=== PATIENT | female | born 1955 | race Caucasian/White ===

== ENCOUNTER → 2020-03-02 15:14 | Outpatient (CLI) | payer OTHER, SELFPAY ==
--- NOTE | 2020-03-02 15:17 | BI_ITS ---
MAMMOGRAPHY - BILATERAL SCREENING REASON FOR EXAM: Female, 64 years old. Routine annual screening examination. PERTINENT HISTORY: Non-contributory. Remote right excisional breast biopsy. TECHNIQUE: Digital bilateral breast [place] (3D mammographic acquisition) in the CC and MLO projections. 2-D mediolateral oblique (MLO) and craniocaudad (CC) views of both breasts were obtained. CAD: Full Field Digital Mammography with Computer Added Detection was performed. COMPARISON: Comparison is made with prior study dated December 03, 2015 and December 01, 2014. FINDINGS: Breast Composition: There are scattered areas of fibroglandular density. There are no dominant masses or suspicious calcifications. The previously seen nodular density in the upper outer aspect of the left breast is not seen at this time. There is a 5.8 mm x 6.7 mm nodule in the inferior anterior central portion of the right breast. There is also evidence of a 8.6 mm x 1 cm nodule in the deep slightly upper lateral portion of the right breast. Correlation with ultrasound of both nodules is suggested. Stable benign-appearing bilateral axillary lymph nodes. No other significant abnormalities are identified. BI/SCREEN MAMM (CAD) W/[place] BILAT IMPRESSION: 2 nodular densities in the right breast as described. Correlation with ultrasound is recommended. ASSESSMENT CATEGORY: BIRADS Category 0: Incomplete. Need additional imaging evaluation. A letter regarding these results will be sent to the patient by the facility within 30 days. Approximately 10% of breast cancers are not detected by mammography. A normal mammogram should not delay biopsy of a clinically suspicious abnormality. [id number] Electronically Signed: Dillon Escamilla, at 8:47 EDT , Service support ,
--- NOTE | 2020-03-02 15:20 | BD_ITS ---
STUDY: DUAL ENERGY X-RAY ABSORPTIOMETRY / DXA REASON FOR EXAM: Female, 64 years old. [employer]- SURGICAL AT 49 -- HX OF HRT -- TAKES DIURETIC -- DOES LITTLE EXERCISE -- FAMILY HX OF OSTEO- MOTHER -- CANDE OF 1.75 INCHES TECHNIQUE: Bone Mineral Density (BMD) measurements of lumbar spine and bilateral hips were obtained. COMPARISON: Comparison is made with prior examination dated December 01, 2014. FINDINGS: Lumbar Spine (L1-L4): g/cm2 (1.212) / T-score (0.1) / Z-score (1.6) Findings are suggestive of normal bone density with a low fracture risk. Left Femur Total: g/cm2 (0.992) / T-score (-0.1) / Z-score (1.0) Left Femoral Neck: g/cm2 (0.977) / T-score (-0.4) / Z-score (1.0) Right Femur Total: g/cm2 (0.969) / T-score (-0.3) / Z-score (0.8) Right Femoral Neck: g/cm2 (0.917) / T-score (-0.9) / Z-score (0.5) The T-Scores on the most recent prior examination were: Lumbar Spine (L1-L4): There has been worsening of bone density since the previous examination. Left Femur Total: which represents a worsening of 2%. Right Femur Total: which represents a worsening of 3.3%. BD/Dexa Bone Density Study IMPRESSION: The patient is considered normal as outlined below according to World Evens Organization (WHO) criteria with a low fracture risk. There has been worsening of bone density since the previous examination. Reference Information: The T-score is the number of standard deviations above or below the standard which is normal for young adults at their peak bone mineral density. The World Health Organization (WHO) interprets the T-scores as follows: Above -1 Normal bone density Between -1 and -2.5 Osteopenia Equal to / or below -2.5 Osteoporosis As a practical clinical guideline, osteopenia may be graded as follows: Mild -1 through -1.5 Moderate -1.6 through -2.0 Severe -2.1 through -2.4 The Z-score is the number of standard deviations above or below age-matched controls. A Z-score of less than -1.5 would be considered abnormal. References: 1. NIH Osteoporosis and Related Bone Diseases http://www.osteo.org 2. International Society for Clinical Densitometry http://www.iscd.org 3. National Osteoporosis Foundation http://www.nof.org Electronically Signed: Dillon Escamilla, at 15:48 EDT , Service support ,
== END ==
PROVIDERS: PCP Internal Medicine; Referring Provider Internal Medicine; Visit Provider Internal Medicine
DX: Z12.31 Encounter for screening mammogram for malignant neoplasm of breast (principal); Z78.0 Asymptomatic menopausal state
CPT/HCPCS: 77063; 77067; 77080

== ENCOUNTER → 2020-03-08 10:34 | Outpatient (CLI) | payer OTHER, SELFPAY ==
--- NOTE | 2020-03-08 10:40 | US_ITS ---
STUDY: ULTRASOUND BREAST - RIGHT REASON FOR EXAM: Female, 64 years old. Abnormal screening mammogram. TECHNIQUE: Axial and longitudinal images of the RIGHT breast were performed with a high resolution ultrasound transducer. # OF IMAGES: 58 COMPARISON: Comparison is made with prior mammogram dated March 02, 2020 and prior ultrasound of the right breast dated September 04, 2012. FINDINGS: RIGHT Breast: There is a 7 mm x 9 mm x 6 mm cyst at the 6:00 position of the breast at 2 cm from nipple. There is also evidence of a 9 mm x 8 mm x 5 mm cyst at the 9:00 position of the breast at 4 cm from nipple. US/Breast Limited Unilateral IMPRESSION: The mammographic abnormality corresponds to 2 small cysts. ASSESSMENT CATEGORY: BIRADS Category 2: Benign. A letter regarding these results will be sent to the patient by the facility within 30 days. Electronically Signed: Dillon Escamilla, at 12:51 EDT , Service support ,
== END ==
PROVIDERS: PCP Internal Medicine; Referring Provider Internal Medicine; Visit Provider Internal Medicine
DX: R92.8 Other abnormal and inconclusive findings on diagnostic imaging of breast (principal); N60.01 Solitary cyst of right breast
CPT/HCPCS: 76642

== ENCOUNTER → 2021-03-07 10:49 | Outpatient (CLI) | payer OTHER, SELFPAY ==
--- NOTE | 2021-03-07 10:52 | BI_ITS ---
MAMMOGRAPHY - BILATERAL SCREENING REASON FOR EXAM: Female, 65 years old. Routine annual screening examination. PERTINENT HISTORY: Non-contributory. Remote right excisional breast biopsy and left needle biopsy. TECHNIQUE: Digital bilateral breast [place] (3D mammographic acquisition) in the CC and MLO projections. 2-D mediolateral oblique (MLO) and craniocaudad (CC) views of both breasts were obtained. CAD: Full Field Digital Mammography with Computer Added Detection was performed. COMPARISON: Comparison is made with prior study dated 03/02/2020 and 12/03/2015. FINDINGS: Breast Composition: There are scattered areas of fibroglandular density. There are no dominant masses or suspicious calcifications. There is a 6 mm x 6 mm well-defined nodule in the slightly inferior medial anterior aspect of the right breast. This is unchanged. The previously seen nodular density in the deep slightly upper lateral aspect of the right breast is not seen at this time. No other significant abnormalities are identified. BI/SCRN MAMM (CAD)W/[place] BILAT IMPRESSION: Stable bilateral screening mammogram. Yearly follow-up mammogram recommended. (A) ASSESSMENT CATEGORY: BIRADS Category 2: Benign. A letter regarding these results will be sent to the patient by the facility within 30 days. Approximately 10% of breast cancers are not detected by mammography. A normal mammogram should not delay biopsy of a clinically suspicious abnormality. [id number] Electronically Signed: Dillon Escamilla MD at 14:02 EDT , Service support ,
== END ==
PROVIDERS: PCP Internal Medicine; Referring Provider Internal Medicine; Visit Provider Internal Medicine
DX: Z12.31 Encounter for screening mammogram for malignant neoplasm of breast (principal)
CPT/HCPCS: 77063; 77067

== ENCOUNTER 2021-11-09 05:10 | Emergency (ER) | payer MEDICARE, SELFPAY ==
[2021-11-09 05:10] VITALS: BP 153/88; PULSE 67; RESP 18; TEMP 37; O2SAT 100; BMI 35.7
[2021-11-09 05:14] VITALS: BP 146/88; PULSE 68; RESP 18; TEMP 37; O2SAT 100
--- NOTE | 2021-11-09 05:25 | CT_ITS ---
STUDY: CT ABDOMEN AND PELVIS WITH CONTRAST REASON FOR EXAM: Female, 66 years old. ? SBO RADIATION DOSAGE (If Supplied By Facility): CTDIvol = ( 17.00 ) mGy, DLP = ( 1059.69 ) mGycm TECHNIQUE: Transaxial images were obtained from the dome of the diaphragm to the symphysis pubis without oral contrast. IV 100mL Isovue-370 was administered. Sagittal and coronal images were reconstructed. Individualized dose optimization techniques were used for this CT. COMPARISON: None. FINDINGS: The visualized lung bases are unremarkable. The visualized portions of the heart are within normal limits. Normal liver. There is a solitary gallstone. Normal spleen. Normal pancreas. Normal bilateral adrenal glands. Normal right kidney. There is several tiny nonobstructive left renal calculi largest measuring 5 mm in size. There is minimal left hydroureter. Probable tiny 2 mm calculus layering within the posterior urinary bladder. There is a small hiatal hernia. Normal small intestine. Normal colon. There is non-visualization of the appendix. No bowel obstruction. Moderate retained stool in the proximal colon. Correlate for constipation. Normal abdominal aorta. Normal inferior vena cava. Normal retroperitoneum. Normal urinary bladder. Normal abdominal wall. There are diffuse degenerative changes of the visualized lumbar spine. CT/Abdomen/Pelvis W IV Cont ONLY IMPRESSION: Minimal left hydroureter without ureteral calculus. Probable tiny 2 mm calculus layering in the posterior urinary bladder likely due to recently passed calculus. No bowel obstruction. Cholelithiasis without evidence for cholecystitis. Electronically Signed: Xander Clifford MD at 7:12 EST Tel , Service support ,
--- NOTE | 2021-11-09 05:27 | EX.ED.DYSGE1 ---
HPI History of Present Illness Chief Complaint: Nausea/Vomiting Narrative Narrative: Patient is a 66-year-old female who states that she went to bed normally. She reports she awoke around 3 in the morning with left-sided abdominal pain. She states she was able to get back to bed for approximately an hour but then awoke with the left-sided pain once again. She states this time it led to bouts of nausea and vomiting. She denies any fevers or chills or known sick contact. She denies any dysuria or hematuria. She reports that she could not get comfortable because of the pain and secondary to this had concerned about an abdominal process and therefore presents for evaluation. PFSH PFS Home Medications amlodipine 5 mg PO DAILY 05/29/14 [History Last Taken 05/28/14 08:00] diphenoxylate-atropine [Lomotil] 1 tab PO TID PRN PRN 11/09/21 [History Last Taken Unknown] hydrochlorothiazide 25 mg DAILY 11/09/21 [History Last Taken Unknown] omeprazole 20 mg PO BID 11/09/21 [History Last Taken Unknown] ondansetron 4 mg PO Q8H PRN #21 tab 11/09/21 [Rx Last Taken Unknown] oxycodone-acetaminophen [Percocet] 1 tab PO Q6H PRN 3 Days #12 tab 11/09/21 [Rx Last Taken Unknown] rosuvastatin [Crestor] 10 mg PO DAILY 11/09/21 [History Last Taken Unknown] Allergy/AdvReac Type Severity Reaction Status Date / Time Sulfa (Sulfonamide Allergy Intermediate Unknown Verified 11/09/21 05:15 Antibiotics) Social History Smoking Status: Never smoker ROS [facility] ED Constitutional Constitutional ED: Denies chills or fever(s) ENT ENT ED: Denies rhinorrhea or sore throat Cardiovascular Cardiovascular: Denies chest pain Respiratory/Chest Respiratory/Chest: Denies cough or dyspnea Gastrointestinal Gastrointestinal: Reports abdominal pain, constipation, nausea and vomiting; Denies diarrhea Genitourinary Genitourinary ED: Denies dysuria Musculoskeletal Musculoskeletal: Denies back pain or myalgias Integumentary Denies rash Neurologic Neurologic: Denies headache(s) Hematologic/Lymphatic Hematologic/Lymphatic: Denies easy bleeding or easy bruising EXAM Physical Exam Const Vital Signs: 11/09/21 05:10 11/09/21 05:14 11/09/21 06:29 Temperature 98.6 F 98.6 F 98.0 F Temperature Source Temporal Temporal Temporal Pulse Rate 67 68 Respiratory Rate 18 18 Blood Pressure 153/88 H 146/88 H Blood Pressure Mean 109 107 Pulse Ox 100 100 Oxygen Delivery Method Room Air Room Air Positive well nourished and well developed General Appearance ED: well developed HEENT Reports moist mucous membranes Eyes PERRL and EOMs intact bilaterally Neck supple Resp normal respiratory effort and clear to auscultation bilaterally Cardio regular rate and regular rhythm Rate: other Other Details: Radial pulses are plus 2 out of 4 bilaterally are equal and symmetric GI GI Narrative: Abdomen is mildly distended with hypoactive bowel sounds and pain with palpation along the left-side. There is increased tympany at the site. No voluntary guarding or rigidity no pulsatile mass. Back/Spine no CVA tenderness Extremity normal to inspection Neuro oriented x3 and CN's II-XII intact bilaterally Sensorium / Orientation: alert Motor Exam: strength 5/5 throughout Psych mental status grossly normal Skin no rashes or lesions noted MDM MDM MDM Narrative Medical decision making narrative: Patient presented to the ER with history concerning for kidney stone versus diverticulitis or bowel obstruction as she did appear distended on exam. Secondary to this I elected perform basic laboratory studies and a CT scan. Labs showed no leukocytosis left shift or acute kidney injury. CT scan showed a stone in the urinary bladder consistent with a recently passed nephrolithiasis. On reevaluation the patient is resting comfortably and reports resolution of her pain. Therefore at this time as she does not have obvious obstruction or infectious process or changes to suggest acute kidney injury she can be placed on symptomatic medications and discharged. Lab Data Attestation: I reviewed the patient's lab results. Labs: Laboratory Results - last 24 hr 11/09/21 11/09/21 05:17 05:17 WBC 9.4 RBC 4.57 Hgb 12.9 Hct 40.1 MCV 87.7 MCH 28.2 MCHC 32.2 RDW Std Deviation 39.8 RDW Coeff of Ly 12.4 Plt Count 288 MPV 11.5 Immature Gran % (Auto) 0.500 Neut % (Auto) 60.5 Lymph % (Auto) 30.1 Baker % (Auto) 6.4 Eos % (Auto) 2.0 Baso % (Auto) 0.5 Absolute Neuts (auto) 5.7 Absolute Lymphs (auto) 2.83 Nucleated RBC % 0 Sodium 139 Potassium 3.0 L Chloride 97 L Carbon Dioxide 29.0 Anion Gap 13 BUN 16 Creatinine 1.01 Estim Creat Clear Calc 41.90 Est GFR (MDRD) Af Amer 71 Est GFR (MDRD) Non-Af 58 L BUN/Creatinine Ratio 15.8 Glucose 188 H Calcium 9.4 Total Bilirubin 0.50 Direct Bilirubin 0.09 AST 29 ALT 37 Alkaline Phosphatase 96 Total Protein 7.6 Albumin 3.8 Globulin 3.8 Lipase 102 Radiography Diagnostic Testing: Clinical Impression(s) from Imaging Studies Abdomen/Pelvis CT 11/09/21 05:25 IMPRESSION: Minimal left hydroureter without ureteral calculus. Probable tiny 2 mm calculus layering in the posterior urinary bladder likely due to recently passed calculus. No bowel obstruction. Cholelithiasis without evidence for cholecystitis. Electronically Signed: Xander Clifford MD at 7:12 EST Tel , Service support , Discharge Plan Triage Chief Complaint: Nausea/Vomiting ED Provider: Sebas Riggins Dx/Rx/DC Orders Clinical Impression: Kidney stone on left side, Renal colic Instructions: ED Kidney Stone w/ Colic Prescriptions: New oxycodone-acetaminophen [Percocet] 5-325 mg tablet 1 tab PO Q6H PRN (Reason: pain) 3 Days Qty: 12 RF: 0 ondansetron 4 mg tablet,disintegrating 4 mg PO Q8H PRN (Reason: nausea and vomiting) Qty: 21 RF: 0 No Action amlodipine 5 MG tablet 5 mg PO DAILY RF: 0 diphenoxylate-atropine [Lomotil] 1 TABLET tablet 1 tab PO TID PRN PRN (Reason: Diarrhea) RF: 0 hydrochlorothiazide 25 mg tablet 25 mg DAILY RF: 0 rosuvastatin [Crestor] 10 mg Tablet 10 mg PO DAILY RF: 0 omeprazole 20 mg Tablet,Delayed Release (Dr/Ec) 20 mg PO BID RF: 0 Primary Care Provider: Leatha Almanza Referrals: Taz Christian MD [STAFF PHYSICIAN] - 3-5 Days if not improving Leatha Almanza DO [Primary Care Provider] - Disposition Disposition: Home, Self Care
[2021-11-09] MEDS: 0.9% Normal Saline 1,000 ML 999 ML IV (05:40)
[2021-11-09] MEDS: Morphine 4 MG/ML Syringe IV (05:41)
[2021-11-09] MEDS: Ondansetron 4 MG/2 ML Vial IV (05:41)
[2021-11-09 05:48] LABS: Absolute Lymphocyte Count 2.83 X10^3/uL (0.83-4.51); Absolute Neutrophil Count 5.7 X10^3/uL (2.0-7.7); Basophil# 0.05 X10^3/uL; Basophil% 0.5 % (0-1); Eosinophil# 0.19 X10^3/uL; Hematocrit 40.1 % (37-47); Hemoglobin 12.9 g/dL (12.0-15.0); Lymphocyte # 2.83 X10^3/ul (0.83-4.51); Lymphocyte % 30.1 % (19-41); Mean Corp Hgb Conc 32.2 g/dL (32-36); Mean Corpuscular Hgb 28.2 pg (27.0-32.0); Mean Corpuscular Volume 87.7 fL (81-99); Mean Platelet Vol. 11.5 fl (6.2-12.0); Monocyte% 6.4 % (0-10); NRBC Flagged by Analyzer 0 % (0-5); Neutrophil # 5.69 X10^3/uL (2.7-7.7); Neutrophil % 60.5 % (47-70); Platelet Count 288 K/mm3 (150-450); RBC Distribution Width CV 12.4 % (11.6-14.6); RBC Distribution Width SD 39.8 fl (35.1-43.9); Red Blood Count 4.57 M/mm3 (4.2-5.4); White Blood Count 9.4 K/mm3 (4.4-11.0)
[2021-11-09] MEDS: fentaNYL 100 MCG/2 ML Ampul 50 MCG IV (06:16)
[2021-11-09 06:29] VITALS: TEMP 36.7
[2021-11-09 06:32] LABS: AST(SGOT) 29 U/L (15-37); Alanine Aminotransfer ALT/SGPT 37 U/L (13-56); Albumin, Serum 3.8 g/dL (3.2-5.0); Alkaline Phosphatase 96 U/L (45-117); Anion Gap 13 (5-15); BUN 16 mg/dL (7-18); BUN/Creat Ratio 15.8 RATIO (10-20); Bilirubin, Direct 0.09 mg/dL (0.00-0.30); Calcium,Total 9.4 mg/dL (8.5-10.1); Chloride 97 mmol/L (98-107); Creatinine, Serum 1.01 mg/dL (0.55-1.02); EST Glomerular Filtration Rate 58 mL/min (>60); Est Glom Filt Rate - Afr Amer 71 mL/min (>60); Globulin 3.8 g/dL (2.2-4.2); Glucose 188 mg/dL (74-106); Lipase 102 U/L (73-393); Protein, Total 7.6 g/dL (6.4-8.2); Sodium Level 139 mmol/L (136-145)
[2021-11-09 07:11] LABS: Bacteria 0 SEEN /hpf (None Seen); Mucous, Urine 0 SEEN /hpf (<or=2+); Squamous Epithelial Cells - UA 0 SEEN /hpf (5-10); White Blood Cells 0 SEEN /hpf (0-5)
[2021-11-09 07:38] LABS: Color, Urine Straw (Yellow); Glucose, Dipstick Normal (Normal); Ketone-Dipstick Negative (Negative); Leukocyte Esterase-Dipstick Negative /ul (Negative); Nitrite-Dipstick Negative (Negative); Occult Blood-Urine 150 /ul (Negative); Protein-Dipstick Negative (Negative); Urine Bilirubin Dipstick Negative (Negative); Urine Clarity Clear (Clear); Urine Urobilinogen Normal (Normal)
[2021-11-09 07:50] LABS: Red Blood Cells-Urine 0-5 SEEN /hpf (0-5)
== END 2021-11-09 07:59 | disposition home or self-care (01) ==
PROVIDERS: Emergency Provider Emergency Medicine; PCP Internal Medicine; Visit Provider Emergency Medicine
DX: N20.0 Calculus of kidney (principal)
CPT/HCPCS: 74177; 80048; 80076; 81001; 83690; 85025; 96361; 96374; 96375; 99281; 99282; J7030; Q9967; A4216; J2405

== ENCOUNTER 2021-11-25 11:52 | Outpatient (CLI) | payer MEDICARE, SELFPAY ==
--- NOTE | 2021-11-25 11:56 | RAD_ITS ---
EXAM: XR ABDOMEN, 1 VIEW CLINICAL INDICATION: KIDNEY STONES TECHNIQUE: Frontal supine view of the abdomen/pelvis. This report was created using [employer] report generation technology. COMPARISON: None. FINDINGS: LOWER THORAX: No acute pathology. GASTROINTESTINAL TRACT: Unremarkable. Non-obstructive. No bowel or stomach distention. ORGANS: Faceted gallstone in the gallbladder. Degenerative findings in the lumbar spine. There are calcified phleboliths in the pelvis. This makes differentiation with distal ureteral stones difficult. No organomegaly. BONES/JOINTS: No acute pathology. SOFT TISSUES: No acute pathology. RAD/Abdomen Single View IMPRESSION: Faceted gallstone in the gallbladder. Electronically Signed: Tarik Ashton MD at 18:33 EST ,
== END 2021-11-25 23:59 | disposition short-term general hospital (02) ==
LOC: MTRAD 11:54
PROVIDERS: PCP Internal Medicine; Referring Provider Urology; Visit Provider Urology
DX: N20.0 Calculus of kidney (principal)
CPT/HCPCS: 74018

== ENCOUNTER 2022-01-10 07:54 | Day surgery (SDC) | payer MEDICARE, SELFPAY ==
[2022-01-10] VITALS (8 sets, daily range): BP systolic 116–146; BP diastolic 81–92; PULSE 74–88; RESP 14–16; TEMP 36.3–37.2; O2SAT 97–100; BMI 32.9
--- NOTE | 2022-01-10 08:03 | EKG12_ITS ---
Test Reason : PREOP Blood Pressure : / mmHG Vent. Rate : 071 BPM Atrial Rate : 071 BPM P-R Int : 148 ms QRS Dur : 074 ms QT Int : 416 ms P-R-T Axes : -03 018 031 degrees QTc Int : 452 ms Normal sinus rhythm Normal ECG No previous ECGs available Confirmed by ARLIN CORDERO, SUSI ([id number]), commissioning editor MONICA KENDALL ([id number]) on 01/12/2022 1:37:08 PM Referred By: Denisse Restrepo Confirmed By:MARIEL OLIVEROS MD
--- NOTE | 2022-01-10 08:19 | PCM.OPRPT ---
Problems Associated Problem List Diagnoses (1) Left renal stone: (2) Incomplete uterovaginal prolapse: Report of Operation Date of Procedure: 01/10/22 Pre-Operative Diagnosis: Left renal calculi , incomplete uterovaginal prolapse Post-Operative Diagnosis: Same Surgery/Procedure Performed:: Cystoscopy with left retrograde pyelogram, left extracorporal shockwave lithotripsy Surgeon: Denisse Restrepo Type of Anesthesia: General Description of Procedure: The patient is a 66-year-old female with a left renal calculus and significant pelvic organ prolapse. She presents for definitive management of her renal stones with extracorporal shockwave lithotripsy, and cystoscopy in preparation for surgical intervention for her prolapse. Informed consent was obtained. Patient was taken to the operating room and placed on the operating room table. Anesthesia monitored the head, neck, IV and vital signs throughout the case. Once anesthesia was appropriately administered the patient was positioned into dorsal lithotomy and was prepped and draped in usual sterile fashion. A cystourethroscopy was performed through the urethra under direct visualization. Once in the urinary bladder, the mucosa was visualized in its entirety and found to be without evidence of mass, ulceration or foreign body. The ureteral orifices were located in the correct anatomic position in the area of the trigone. An 8 [place] cone-tip catheter was then used to gently cannulate the left ureteral orifice and contrast was injected in retrograde fashion under fluoroscopic visualization. 2 stones were identified, 1 in the midpole and one in the lower pole. There is no hydronephrosis or evidence of other filling defect or abnormality. At this time the cystoscope was removed. 3000 shocks were applied to the stones which appeared to be well fragmented at the conclusion of the case. The patient was then awakened and taken to the recovery room in good condition. There were no complications during this procedure Grafts/Implants Used: None Complications None Admit VTE Documentation VTE Present on Admission: Yes VTE Mechan Device Prophylaxis: SCD's VTE Pharm Prophylaxis ordered?: No Reason prophylaxis not ordered:: Treatment Not Indicated
--- NOTE | 2022-01-10 08:22 | PCM.DC ---
Discharge Instructions Diet Discharge Diet: No restrictions Activity Discharge Activity: Return to Normal Activity Dressing / Incision Call your doctor if you observe: Fever of 101 or Higher, Inability to urinate and Inability to have a bowel movement Follow Up Care Please Follow Up With: Denisse Restrepo MD When: in 2-3 weeks with KUB, call office for appt Test Results: Test results from this visit will be discussed in further detail at your follow-up appointment, if applicable. Discharge Plan Admission Attending Provider: Denisse Restrepo Primary Care Provider: Leatha Almanza Discharge Orders/Prescriptions Prescriptions: New cephalexin [cephalexin] 500 MG capsule 500 mg PO Q12 3 Days Qty: 6 RF: 0 Continued amlodipine 5 MG tablet 5 mg PO DAILY RF: 0 hydrochlorothiazide 25 mg tablet 25 mg DAILY RF: 0 rosuvastatin [Crestor] 10 mg Tablet 10 mg PO DAILY RF: 0 omeprazole 20 mg Tablet,Delayed Release (Dr/Ec) 20 mg PO DAILY RF: 0 Referrals / Follow Up: Leatha Almanza DO [Primary Care Provider] - Disposition Disposition (needs filled in before D/C Order can be placed): Home, Self Care
[2022-01-10] MEDS: Lactated Ringers 1,000 ML 15 ML IV (08:37)
[2022-01-10 08:40] LABS: Hematocrit 37.8 % (37-47); Hemoglobin 12.4 g/dL (12.0-15.0); Mean Corp Hgb Conc 32.8 g/dL (32-36); Mean Corpuscular Hgb 28.5 pg (27.0-32.0); Mean Corpuscular Volume 86.9 fL (81-99); Mean Platelet Vol. 10.7 fl (6.2-12.0); Platelet Count 218 K/mm3 (150-450); RBC Distribution Width CV 12.8 % (11.6-14.6); RBC Distribution Width SD 40.7 fl (35.1-43.9); Red Blood Count 4.35 M/mm3 (4.2-5.4); White Blood Count 4.3 K/mm3 (4.4-11.0)
[2022-01-10 09:02] LABS: Anion Gap 6 (5-15); BUN 13 mg/dL (7-18); Calcium,Total 9.5 mg/dL (8.5-10.1); Chloride 102 mmol/L (98-107); EST Glomerular Filtration Rate 59 mL/min (>60); Est Glom Filt Rate - Afr Amer 72 mL/min (>60); Estimated Creatinine Clearance 42.32 ml/min; Glucose 117 mg/dL (74-106); Potassium 3.2 mmol/L (3.5-5.1); Sodium Level 140 mmol/L (136-145)
[2022-01-10] MEDS: Cefazolin 2 GM in 0.9% Normal Saline 100 ML IV (09:11)
== END 2022-01-10 23:59 | disposition home or self-care (01) ==
LOC: SDC 08:00 → AC 08:01
PROVIDERS: PCP Internal Medicine; Referring Provider Urology; Visit Provider Urology
PROC: (CPT 50590; principal; 2022-01-10 09:15)
DX: N20.0 Calculus of kidney (principal); N99.3 Prolapse of vaginal vault after hysterectomy; N95.2 Postmenopausal atrophic vaginitis; I10 Essential (primary) hypertension; M19.90 Unspecified osteoarthritis, unspecified site; K21.9 Gastro-esophageal reflux disease without esophagitis
CPT/HCPCS: 50590; 00873; 80048; 85027; 93005; J7120; J2405

== ENCOUNTER 2022-01-25 13:08 | Outpatient (CLI) | payer MEDICARE, SELFPAY ==
--- NOTE | 2022-01-25 13:12 | RAD_ITS ---
EXAM: XR ABDOMEN, 1 VIEW CLINICAL INDICATION: KUB- KIDNEY CALC. TECHNIQUE: Frontal supine view of the abdomen/pelvis. This report was created using [employer] report generation technology. COMPARISON: None. FINDINGS: LOWER THORAX: No acute pathology. GASTROINTESTINAL TRACT: Stool in the colon may suggest constipation. Non-obstructive. No bowel or stomach distention. ORGANS: Gallstone. No organomegaly. BONES/JOINTS: Degenerative findings in the lumbar spine. SOFT TISSUES: No acute pathology. RAD/Abdomen Single View IMPRESSION: 1. Stool in the colon may suggest constipation. 2. Gallstone. Electronically Signed: Tarik Ashton MD at 18:34 EDT ,
== END 2022-01-25 23:59 | disposition home or self-care (01) ==
LOC: MTRAD 13:10
PROVIDERS: PCP Internal Medicine; Referring Provider Urology; Visit Provider Urology
DX: N20.0 Calculus of kidney (principal)
CPT/HCPCS: 74018

== ENCOUNTER → 2022-03-08 | Outpatient (CLI) | payer MEDICARE, SELFPAY ==
--- NOTE | 2022-03-08 10:24 | BI_ITS ---
MAMMOGRAPHY - BILATERAL SCREENING REASON FOR EXAM: Female, 66 years old. Routine annual screening examination. PERTINENT HISTORY: Non-contributory. Remote right excisional breast biopsy. TECHNIQUE: Digital bilateral breast [place] (3D mammographic acquisition) in the CC and MLO projections. 2-D mediolateral oblique (MLO) and craniocaudad (CC) views of both breasts were obtained. CAD: Full Field Digital Mammography with Computer Added Detection was performed. COMPARISON: Comparison is made with prior study of 03/07/2021 and 03/02/2020. FINDINGS: Breast Composition: There are scattered areas of fibroglandular density. There are no dominant masses or suspicious calcifications. Stable 6 mm x 6 mm well-defined nodule in the slightly inferior medial anterior aspect of the right breast. This was demonstrated to be a small cyst on prior sonogram. Stable small benign-appearing bilateral axillary lymph nodes. No other significant abnormalities are identified. There has been no significant change since the prior study. BI/SCRN MAMM (CAD)W/[place] BILAT IMPRESSION: Stable bilateral screening mammogram. Yearly follow-up mammogram recommended. (A) ASSESSMENT CATEGORY: BIRADS Category 2: Benign. A letter regarding these results will be sent to the patient by the facility within 30 days. Approximately 10% of breast cancers are not detected by mammography. A normal mammogram should not delay biopsy of a clinically suspicious abnormality. [id number] Electronically Signed: Dillon Escamilla MD at 12:39 EDT ,
--- NOTE | 2022-03-08 10:29 | BD_ITS ---
STUDY: DUAL ENERGY X-RAY ABSORPTIOMETRY / DXA REASON FOR EXAM: Female, 66 years old. [id number]. Patient is postmenopausal. TECHNIQUE: Bone Mineral Density (BMD) measurements of lumbar spine and bilateral hips were obtained. COMPARISON: Comparison is made with prior study dated 03/02/2020 . FINDINGS: Lumbar Spine (L1-L4): g/cm2 (1.015) / T-score (-0.2) / Z-score (1.6) Findings are suggestive of normal bone density with a low fracture risk. Left Femur Total: g/cm2 (0.939) / T-score (0.0) / Z-score (1.2) Left Femoral Neck: g/cm2 (0.806) / T-score (0.4) / Z-score (1.2) Right Femur Total: g/cm2 (0.921) / T-score (-0.2) / Z-score (1.1) Right Femoral Neck: g/cm2 (0.73) / T-score (-0.6) / Z-score (1.0) The T-Scores on the most recent prior examination were: Lumbar Spine (L1-L4): There has been worsening of bone density since the previous examination. Left Femur Total: which represents an improvement of 1.4%. Right Femur Total: which represents an improvement of 1.8%. BD/Dexa Bone Density Study IMPRESSION: The patient is considered normal as outlined below according to World Evens Organization (WHO) criteria with a low fracture risk. There has been improvement of bone density since the previous examination. Reference Information: The T-score is the number of standard deviations above or below the standard which is normal for young adults at their peak bone mineral density. The World Health Organization (WHO) interprets the T-scores as follows: Above -1 Normal bone density Between -1 and -2.5 Osteopenia Equal to / or below -2.5 Osteoporosis As a practical clinical guideline, osteopenia may be graded as follows: Mild -1 through -1.5 Moderate -1.6 through -2.0 Severe -2.1 through -2.4 The Z-score is the number of standard deviations above or below age-matched controls. A Z-score of less than -1.5 would be considered abnormal. References: 1. NIH Osteoporosis and Related Bone Diseases www osteo.org 2. International Society for Clinical Densitometry www iscd.org 3. National Osteoporosis Foundation www nof.org Electronically Signed: Dillon Escamilla MD at 12:09 EDT ,
== END | disposition home or self-care (01) ==
LOC: OPBD 10:22
PROVIDERS: PCP Internal Medicine; Referring Provider Internal Medicine; Visit Provider Internal Medicine
DX: Z12.31 Encounter for screening mammogram for malignant neoplasm of breast (principal); Z78.0 Asymptomatic menopausal state
CPT/HCPCS: 77063; 77067; 77080

== ENCOUNTER 2022-06-12 13:00 | Outpatient (RCR) | payer MEDICARE, SELFPAY | END 2022-06-28 23:59 | LOC: DC 13:00 | PROVIDERS: PCP Internal Medicine; Referring Provider Internal Medicine; Visit Provider Internal Medicine | DX: E11.9 Type 2 diabetes mellitus without complications (principal); I10 Essential (primary) hypertension; E78.5 Hyperlipidemia, unspecified | CPT/HCPCS: 97802; G0108 ==

== ENCOUNTER → 2022-07-12 | Outpatient (CLI) | payer MEDICARE, SELFPAY ==
[2022-07-12 15:07] LABS: Hematocrit 41.2 % (37-47); Hemoglobin 13.5 g/dL (12.0-15.0); Mean Corp Hgb Conc 32.8 g/dL (32-36); Mean Corpuscular Hgb 28.9 pg (27.0-32.0); Mean Corpuscular Volume 88.2 fL (81-99); Mean Platelet Vol. 12.1 fl (6.2-12.0); Platelet Count 244 K/mm3 (150-450); RBC Distribution Width CV 14.2 % (11.6-14.6); RBC Distribution Width SD 45.7 fl (35.1-43.9); Red Blood Count 4.67 M/mm3 (4.2-5.4); White Blood Count 5.9 K/mm3 (4.4-11.0)
[2022-07-12 15:19] LABS: Anion Gap 8 (5-15); BUN 12 mg/dL (7-18); BUN/Creat Ratio 13.5 RATIO (10-20); Calcium,Total 9.5 mg/dL (8.5-10.1); Chloride 99 mmol/L (98-107); Creatinine, Serum 0.89 mg/dL (0.55-1.02); EST Glomerular Filtration Rate 68 mL/min (>60); Est Glom Filt Rate - Afr Amer 82 mL/min (>60); Glucose 84 mg/dL (74-106); Potassium 3.4 mmol/L (3.5-5.1); Sodium Level 138 mmol/L (136-145)
== END | disposition home or self-care (01) ==
PROVIDERS: PCP Internal Medicine; Referring Provider Urology; Visit Provider Urology
DX: N99.3 Prolapse of vaginal vault after hysterectomy (principal); E11.9 Type 2 diabetes mellitus without complications; I10 Essential (primary) hypertension; E78.5 Hyperlipidemia, unspecified
CPT/HCPCS: 36415; 80048; 85027; G0108

== ENCOUNTER 2022-07-17 11:00 | Outpatient (RCR) | payer MEDICARE, SELFPAY | END 2022-07-28 23:59 | LOC: DC 11:00 | PROVIDERS: PCP Internal Medicine; Referring Provider Internal Medicine; Visit Provider Internal Medicine | DX: E11.9 Type 2 diabetes mellitus without complications (principal); I10 Essential (primary) hypertension; E78.5 Hyperlipidemia, unspecified | CPT/HCPCS: 97803; G0108 ==

== ENCOUNTER 2022-08-03 11:54 | Observation (INO) | payer MEDICARE, SELFPAY ==
[2022-07-17 11:47] LABS: International Normalized Ratio 0.9; Prothrombin Time (Protime)PT. 12.3 SECONDS (11.7-14.9)
[2022-07-17 11:48] LABS: Partial Thromboplast Time 30.8 Seconds (24.1-36.2)
[2022-07-17 12:02] LABS: Hemoglobin A1c 5.9 % (3.8-5.6)
[2022-07-17 12:50] LABS: AST(SGOT) 21 U/L (15-37); Alanine Aminotransfer ALT/SGPT 22 U/L (13-56); Albumin, Serum 3.6 g/dL (3.2-5.0); Alkaline Phosphatase 92 U/L (45-117); Bilirubin, Direct 0.13 mg/dL (0.00-0.30); Globulin 3.8 g/dL (2.2-4.2); Protein, Total 7.4 g/dL (6.4-8.2)
[2022-08-03] VITALS (13 sets, daily range): BP systolic 108–134; BP diastolic 69–82; PULSE 77–88; RESP 12–18; TEMP 36.3–37.2; O2SAT 93–99; BMI 30.4
[2022-08-03] MEDS: Lactated Ringers 1,000 ML 15 ML IV (09:20)
[2022-08-03] MEDS: Estrogens,Conj. 1 Tube 1 DOSE (09:43)
[2022-08-03] MEDS: Cefazolin 2 GM in 0.9% Normal Saline 100 ML IV (10:14)
[2022-08-03] MEDS: Lidocaine 1% /Epi 1:100 (20ml) 20 ML Vial (11:18)
[2022-08-03 11:25] LABS: Bedside Glucose 106 mg/dL (74-106)
--- NOTE | 2022-08-03 12:02 | PCM.OPRPT ---
Problems Associated Problem List Diagnoses (1) Incomplete uterovaginal prolapse: Report of Operation Date of Procedure: 08/03/22 Pre-Operative Diagnosis: Cystocele, rectocele, vaginal vault prolapse Post-Operative Diagnosis: Same Surgery/Procedure Performed:: Anterior repair, posterior repair, right sacrospinous ligament fixation, cystoscopy, bilateral ureteral catheterization Surgeon: Denisse Restrepo Type of Anesthesia: General Estimated Blood Loss (mL): 25cc Description of Procedure: The patient is a 67-year-old female with cystocele, rectocele and vaginal vault prolapse who presents for surgical intervention. Informed consent has been obtained. The patient was taken to the operating room and placed on the operating room table. Anesthesia monitored the head, neck, airway, IV access and vital signs throughout the case. Once anesthesia was appropriately administered, the patient was placed into dorsal lithotomy in Trendelenburg position. She was prepped and draped in usual sterile fashion. At this time a 16 Cam[place] Hand catheter was inserted and the bladder was drained. The cystocele and rectocele defects were very localized in nature. The anterior vaginal wall was isolated and injected submucosally with 1% lidocaine with epinephrine for hydrostatic dissection and hemostatic control. A vertical midline incision approximately 2 cm in length was then made. Sharp and blunt dissection was performed on both sides. There is significant scar tissue specifically on the left side greater than the right. On the left side I was unable to gain access to the sacrospinous ligaments in a safe manner. On the right side dissection continued bluntly until the ischial spine was palpable and the sacrospinous ligament was identified and cleared from surrounding tissues. The Sangeetha device was used to pass an Ethibond suture through the sacrospinous ligament and this was brought out in full-thickness fashion through the apex of the vaginal vault. The cystocele defect was then repaired using plication with 2-0 Vicryl in a 2 layer closure. The vaginal mucosa was then closed with running interlocking 2-0 Vicryl. The Ethibond suture was tied down and the prolapse was reduced. A cystourethroscopy with bilateral ureteral catheterization was performed through the urethra revealing no evidence of injury to either ureter or the bladder. The Hand catheter was then replaced. At this time the localized distal rectocele defect was injected submucosally for hydrostatic dissection and hemostatic control. An incision in the vaginal mucosa was made and the defect was dissected. The surrounding rectovaginal fascia was brought together in a 2 layer closure with interrupted 2-0 Vicryl suture. The vaginal mucosa was then closed over this with 2-0 Vicryl as well. At this time the vagina was packed with vaginal packing and estrogen cream. The patient was awakened and taken to the recovery room in good condition. There were no complications during this procedure. Grafts/Implants Used: None Complications None Admit VTE Documentation VTE Present on Admission: Yes VTE Mechan Device Prophylaxis: SCD's VTE Pharm Prophylaxis ordered?: Yes
--- NOTE | 2022-08-03 12:03 | DCINST_ITS ---
Discharge Instructions Diet Discharge Diet: No restrictions Activity Discharge Activity: May Not Drive (For 2 weeks) and May Shower May resume sexual activity in: 8 weeks Lifting Restrictions: 5 pounds Additional Activity Instructions:: No swimming, tub bathing, hot tubs, no sexual activity, no exercise, no strenuous activity, no lifting over 5 pounds Dressing / Incision Call your doctor if your incision/area has: Continuous Slow Oozing, Sudden Increased Bleeding, Increased Pain/ Swelling and Foul Smelling Discharge Call your doctor if you observe: Fever of 101 or Higher, Inability to urinate and Inability to have a bowel movement Follow Up Care Please Follow Up With: Denisse Restrepo MD When: Call office for appointment Test Results: Test results from this visit will be discussed in further detail at your follow- up appointment, if applicable. Discharge Plan Admission Admit Date/Time: 08/03/22 11:54 Attending Provider: Denisse Restrepo Primary Care Provider: Leatha Almanza Discharge Orders/Prescriptions Prescriptions: New ondansetron HCl [ondansetron HCl] 8 mg tablet 8 mg PO Q8H PRN PRN (Reason: Nausea) 7 Days Qty: 20 0RF oxycodone-acetaminophen [Percocet] 5-325 mg tablet 1 tab PO Q8H PRN (Reason: pain) 5 Days Qty: 20 0RF cephalexin [cephalexin] 500 mg capsule 500 mg PO Q12 3 Days Qty: 6 0RF Continued amlodipine 5 MG tablet 5 mg PO DAILY Label Comments: BLOOD PRESSURE hydrochlorothiazide 25 mg tablet 25 mg PO DAILY rosuvastatin [Crestor] 10 mg Tablet 10 mg PO QHS metformin 500 mg Tablet 500 mg PO QHS famotidine 20 mg Tablet 20 mg PO DAILY Referrals / Follow Up: Leatha Almanza DO [Primary Care Provider] - Disposition Disposition (needs filled in before D/C Order can be placed): Home, Self Care
[2022-08-03] MEDS: Enoxaparin 40 MG/0.4 ML Syringe SC (13:54)
[2022-08-03] MEDS: Lactated Ringers 1,000 ML 100 ML IV (17:04)
[2022-08-03] MEDS: Docusate Sodium 100 MG Capsule PO (21:07)
[2022-08-03] MEDS: Atorvastatin Calcium 20 MG Tablet PO (21:08)
[2022-08-03] MEDS: Cephalexin 500 MG Capsule PO (21:08)
[2022-08-03] MEDS: metFORMIN HCl 500 MG Tablet PO (21:08)
[2022-08-04 02:34] VITALS: BP 104/73; PULSE 71; RESP 16; TEMP 36.8; O2SAT 98
[2022-08-04] MEDS: Lactated Ringers 1,000 ML 100 ML IV (02:42)
[2022-08-04 05:39] LABS: Hematocrit 34.3 % (37-47); Hemoglobin 11.5 g/dL (12.0-15.0); Mean Corp Hgb Conc 33.5 g/dL (32-36); Mean Corpuscular Hgb 29.3 pg (27.0-32.0); Mean Corpuscular Volume 87.3 fL (81-99); Mean Platelet Vol. 10.8 fl (6.2-12.0); Platelet Count 188 K/mm3 (150-450); RBC Distribution Width CV 13.9 % (11.6-14.6); RBC Distribution Width SD 44.4 fl (35.1-43.9); Red Blood Count 3.93 M/mm3 (4.2-5.4); White Blood Count 13.9 K/mm3 (4.4-11.0)
[2022-08-04 05:47] VITALS: BP 111/70; PULSE 66; RESP 16; TEMP 36.6; O2SAT 96
[2022-08-04 06:39] LABS: Anion Gap 7 (5-15); BUN 10 mg/dL (7-18); BUN/Creat Ratio 13.4 RATIO (10-20); Calcium,Total 8.9 mg/dL (8.5-10.1); Chloride 105 mmol/L (98-107); Creatinine, Serum 0.75 mg/dL (0.55-1.02); EST Glomerular Filtration Rate 83 mL/min (>60); Est Glom Filt Rate - Afr Amer 100 mL/min (>60); Estimated Creatinine Clearance 41.76 ml/min; Glucose 121 mg/dL (74-106); Potassium 3.4 mmol/L (3.5-5.1); Sodium Level 140 mmol/L (136-145)
[2022-08-04 07:29] VITALS: O2SAT 95
[2022-08-04 08:01] VITALS: BP 112/70; PULSE 73; RESP 16; TEMP 36.5; O2SAT 97
[2022-08-04] MEDS: Docusate Sodium 100 MG Capsule PO (08:19)
[2022-08-04] MEDS: Enoxaparin 40 MG/0.4 ML Syringe SC (08:20)
[2022-08-04] MEDS: hydroCHLOROthiazide 25 MG Tablet PO (08:20)
[2022-08-04] MEDS: Cephalexin 500 MG Capsule PO (08:20)
[2022-08-04] MEDS: amLODIPine 5 MG Tablet PO (08:21)
[2022-08-04] MEDS: Famotidine 20 MG Tablet PO (08:21)
[2022-08-04] MEDS: 0.9% Saline Lock 10 ML Syringe IV ×2 (08:25→12:31)
--- NOTE | 2022-08-04 09:15 | PCM.PROGNOTE ---
Subjective Subjective Patient is comfortable, sitting up in bed, had an uneventful evening. She is passing gas and tolerating p.o. intake. She was out of bed to chair yesterday. Objective Data Objective Data Vital Signs: Vital Signs Temp Pulse Resp BP Pulse Ox O2 Del Method 97.7 F L 73 16 112/70 97 Room Air 08/04/22 08:01 08/04/22 08:01 08/04/22 08:01 08/04/22 08:01 08/04/22 08:01 08/04/22 08:02 Oxygen Delivery Method Room Air Weight: 73 kg Body Mass Index (BMI) 30.4 Intake & Output: Intake and Output for Last 24 Hours 08/02/22 08/03/22 08/04/22 23:59 23:59 23:59 Intake Total 855 / 855 1535.00 / 1535.00 Output Total 1100 / 2350 1250 / 1250 Balance -245 / -1495 285.00 / 285.00 Lab / Micro Data Result Diagrams: 08/04/22 05:22 08/04/22 05:22 Labs: Laboratory Results - last 24 hr 08/03/22 09:03: POC Glucose 106 08/04/22 05:22: WBC 13.9 H, RBC 3.93 L, Hgb 11.5 L, Hct 34.3 L, MCV 87.3, MCH 29.3, MCHC 33.5, RDW Std Deviation 44.4 H, RDW Coeff of Ly 13.9, Plt Count 188, MPV 10.8 08/04/22 05:22: Sodium 140, Potassium 3.4 L, Chloride 105, Carbon Dioxide 28.0, Anion Gap 7, BUN 10, Creatinine 0.75, Estim Creat Clear Calc 41.76, Est GFR (MDRD) Af Amer 100, Est GFR (MDRD) Non-Af 83, BUN/Creatinine Ratio 13.4, Glucose 121 H, Calcium 8.9 Physical Exam Narrative She is alert and oriented x3, no apparent distress Abdomen is soft nontender nondistended Calfs are nontender and SCDs are in place Hand catheter is draining clear yellow urine Hand catheter was removed with deflation of the balloon without incident Vaginal packing was removed Assessment & Plan Assessment/Plan (1) Cystocele: (2) Rectocele: (3) Vaginal vault prolapse: PLAN: Plan Trial of void Ambulation Home later today Follow-up in the office in 2 weeks
[2022-08-04] MEDS: HYDROcodone Bitartrate/Apap 5/325 Tablet PO (10:58)
--- NOTE | 2022-08-04 12:14 | CASEMGMT ---
JOSE G CM in to discuss ESCAMILLA form with patient. RN CM explained ESCAMILLA form, patient voiced understanding. Pt signed form and filed in chart. Pt provided with a copy of signed ESCAMILLA form. Patient had no further questions or concerns at this time.
--- NOTE | 2022-08-04 12:21 | CASEMGMT ---
Social Work SW spoke with pt who states she does have a Living Will and a Health Care POA naming her Femi Guzman. Pt made aware documents are not on file at [facility] and requested they be brought in for scanning when able. FORREST Giraldo
[2022-08-04 12:25] VITALS: BP 144/85; PULSE 81; RESP 14; TEMP 36.6; O2SAT 99
[2022-08-04] MEDS: Ondansetron 4 MG/2 ML Vial IV (12:31)
--- NOTE | 2022-08-04 15:10 | PHA.DC.MR ---
Pharmacy Service has performed discharge medication reconciliation for this patient. The patient's discharge medication list was reviewed for discrepancies and discrepancies were resolved. Did not get to explain medications, patient was about to get sick. Medication education papers dropped off. Home Medications amlodipine 5 mg tablet 5 mg PO DAILY BP 05/29/14 hydrochlorothiazide 25 mg tablet 25 mg PO DAILY BP 11/09/21 rosuvastatin 10 mg tablet (Crestor) 10 mg PO QHS HLD 11/09/21 metformin 500 mg tablet 500 mg PO QHS blood glucose 07/14/22 famotidine 20 mg tablet 20 mg PO DAILY 07/28/22 cephalexin 500 mg capsule 500 mg PO Q12 post-operative 3 days #6 CAPSULES 08/03/22 ondansetron HCl 8 mg tablet 8 mg PO Q8H PRN PRN Nausea 7 days #20 TABLETS 08/03/22 oxycodone-acetaminophen 5 mg-325 mg tablet (Percocet) 1 tab PO Q8H PRN pain 5 days #20 tabs 08/03/22
[2022-08-04 15:24] VITALS: BP 148/86; PULSE 82; RESP 14; TEMP 36.8; O2SAT 97
== END 2022-08-04 15:38 | disposition home or self-care (01) ==
LOC: SDC 12:06 → MS3 12:06
PROVIDERS: Anesthesiology; Admitting Provider Urology; PCP Internal Medicine; Referring Provider Urology; Visit Provider Urology
PROC: (CPT 57260; principal; 2022-08-03 10:00)
DX: N81.2 Incomplete uterovaginal prolapse (principal); E11.9 Type 2 diabetes mellitus without complications; I10 Essential (primary) hypertension; E78.00 Pure hypercholesterolemia, unspecified; Z79.899 Other long term (current) drug therapy; N95.2 Postmenopausal atrophic vaginitis; M19.90 Unspecified osteoarthritis, unspecified site; K21.9 Gastro-esophageal reflux disease without esophagitis; Z86.2 Personal history of diseases of the blood and blood-forming organs and certain disorders involving the immune mechanism; R06.02 Shortness of breath
CPT/HCPCS: 57282; 57260; 00942; 36415; 80048; 80076; 82962; 83036; 85027; 85610; 85730; 96361; 96372; 96374; 99218; 99251; J7120; A4216; C1758; G0378; G0463; J2405

== ENCOUNTER → 2023-04-03 | Outpatient (CLI) | payer MEDICARE, SELFPAY ==
--- NOTE | 2023-04-03 13:31 | BI_ITS ---
MAMMOGRAPHY - BILATERAL SCREENING REASON FOR EXAM: Female, 67 years old. Routine annual screening examination. PERTINENT HISTORY: Non-contributory. Remote right excisional breast biopsy. TECHNIQUE: Digital bilateral breast [place] (3D mammographic acquisition) in the CC and MLO projections. 2-D mediolateral oblique (MLO) and craniocaudad (CC) views of both breasts were obtained. CAD: Full Field Digital Mammography with Computer Added Detection was performed. COMPARISON: Comparison is made with prior study dated March 08, 2022 and March 07, 2021. FINDINGS: Breast Composition: There are scattered areas of fibroglandular density. There are no dominant masses or suspicious calcifications. Stable 6 mm x 6 mm well-defined nodule in the slightly inferior medial anterior aspect of the right breast. This was demonstrated to be small cyst on prior sonogram. Stable benign-appearing bilateral axillary lymph nodes. No other significant abnormalities are identified. There has been no significant change since the prior study. BI/SCRN MAMM (CAD)W/[place] BILAT IMPRESSION: Stable bilateral screening mammogram. Yearly follow-up mammogram recommended. (A) ASSESSMENT CATEGORY: BIRADS Category 2: Benign. A letter regarding these results will be sent to the patient by the facility within 30 days. Approximately 10% of breast cancers are not detected by mammography. A normal mammogram should not delay biopsy of a clinically suspicious abnormality. [id number] Electronically Signed: Dillon Escamilla MD at 14:22 EDT ,
== END | disposition home or self-care (01) ==
LOC: OPBD 13:28
PROVIDERS: PCP Internal Medicine; Referring Provider Internal Medicine; Visit Provider Internal Medicine
DX: Z12.31 Encounter for screening mammogram for malignant neoplasm of breast (principal)
CPT/HCPCS: 77063; 77067

== ENCOUNTER → 2024-04-09 | Outpatient (CLI) | payer MEDICARE, SELFPAY ==
--- NOTE | 2024-04-09 12:52 | BI_ITS ---
MAMMOGRAPHY - BILATERAL SCREENING REASON FOR EXAM: Female, 68 years old. Routine annual screening examination. PERTINENT HISTORY: Non-contributory. TECHNIQUE: Digital bilateral breast [place] (3D mammographic acquisition) in the CC and MLO projections. 2-D mediolateral oblique (MLO) and craniocaudad (CC) views of both breasts were obtained. CAD: Full Field Digital Mammography with Computer Added Detection was performed. COMPARISON: Comparison is made with prior study dated April 03, 2023 and March 08, 2022. FINDINGS: Breast Composition: There are scattered areas of fibroglandular density. There are no dominant masses or suspicious calcifications. Stable 6 mm x 6 mm well-defined nodule in the slightly inferior medial anterior aspect of the right breast. This was demonstrated to be a cyst on prior sonogram. Stable bilateral fat containing axillary lymph nodes. No other significant abnormalities are identified. There has been no significant change since the prior study. BI/SCRN MAMM (CAD)W/[place] BILAT IMPRESSION: Stable bilateral screening mammogram. Yearly follow-up mammogram recommended. (A) ASSESSMENT CATEGORY: BIRADS Category 2: Benign. A letter regarding these results will be sent to the patient by the facility within 30 days. Approximately 10% of breast cancers are not detected by mammography. A normal mammogram should not delay biopsy of a clinically suspicious abnormality. [id number] Electronically Signed: Dillon Escamilla MD at 14:39 EDT ,
--- NOTE | 2024-04-09 12:58 | BD_ITS ---
STUDY: DUAL ENERGY X-RAY ABSORPTIOMETRY / DXA REASON FOR EXAM: Female, 68 years old. OSTEO TECHNIQUE: Bone Mineral Density (BMD) measurements of lumbar spine and bilateral hips were obtained. COMPARISON: Comparison is made with prior study dated March 08, 2022. FINDINGS: Lumbar Spine (L1-L4): g/cm2 (1.018) / T-score (-0.2) / Z-score (1.8) Findings are suggestive of normal bone density with a low fracture risk. Left Femur Total: g/cm2 (0.945) / T-score (0.0) / Z-score (1.4) Left Femoral Neck: g/cm2 (0.820) / T-score (-0.3) / Z-score (1.4) Right Femur Total: g/cm2 (0.893) / T-score (-0.4) / Z-score (1.0) Right Femoral Neck: g/cm2 (0.758) / T-score (-0.8) / Z-score (0.9) The T-Scores on the most recent prior examination were: Lumbar Spine (L1-L4): There has been improvement of bone density since the previous examination. Left Femur Total: which represents an improvement of 0.6%. Right Femur Total: which represents a worsening of 3%. BD/Dexa Bone Density Study IMPRESSION: The patient is considered normal as outlined below according to World Evens Organization (WHO) criteria with a low fracture risk. There has been improvement of bone density since the previous examination. Reference Information: The T-score is the number of standard deviations above or below the standard which is normal for young adults at their peak bone mineral density. The World Health Organization (WHO) interprets the T-scores as follows: Above -1 Normal bone density Between -1 and -2.5 Osteopenia Equal to / or below -2.5 Osteoporosis As a practical clinical guideline, osteopenia may be graded as follows: Mild -1 through -1.5 Moderate -1.6 through -2.0 Severe -2.1 through -2.4 The Z-score is the number of standard deviations above or below age-matched controls. A Z-score of less than -1.5 would be considered abnormal. References: 1. NIH Osteoporosis and Related Bone Diseases www osteo.org 2. International Society for Clinical Densitometry www iscd.org 3. National Osteoporosis Foundation www nof.org Electronically Signed: Dillon Escamilla MD at 15:37 EDT ,
== END | disposition home or self-care (01) ==
LOC: OPBI 12:50
PROVIDERS: PCP Internal Medicine; Referring Provider Internal Medicine; Visit Provider Internal Medicine
DX: Z12.31 Encounter for screening mammogram for malignant neoplasm of breast (principal); Z78.0 Asymptomatic menopausal state
CPT/HCPCS: 77063; 77067; 77080

== ENCOUNTER → 2025-05-13 | Outpatient (CLI) | payer MEDICARE, SELFPAY ==
--- NOTE | 2025-05-13 14:30 | BI_ITS ---
EXAM: SCRN MAMM (CAD)W/[place] BILAT DATE: 05/13/2025 CLINICAL HISTORY: F, Age 70 y/o , SCREENING TECHNIQUE: SCRN MAMM (CAD)W/[place] BILAT COMPARISON: Prior exam(s) dated 04/09/2024, 04/03/2023, 03/08/2022. FINDINGS: TISSUE DENSITY: There are scattered areas of fibroglandular density. Bilateral Breast Mammographic Findings: No significant masses, calcifications or other abnormalities are identified. BI/SCRN MAMM (CAD)W/[place] BILAT IMPRESSION: There is no mammographic evidence of malignancy. OVERALL FINAL ASSESSMENT BI-RADS 1: NEGATIVE. RECOMMENDATION: Routine annual follow-up in 1 Year A letter with findings and recommendations will be mailed to the patient. Reading Location: [id number]
== END | disposition home or self-care (01) ==
LOC: OPBI 14:27
PROVIDERS: PCP Internal Medicine; Referring Provider Internal Medicine; Visit Provider Internal Medicine
DX: Z12.31 Encounter for screening mammogram for malignant neoplasm of breast (principal)
CPT/HCPCS: 77063; 77067

== ENCOUNTER 2025-06-10 07:41 | Day surgery (SDC) | payer MEDICARE, SELFPAY ==
[2025-06-10] VITALS (8 sets, daily range): BP systolic 102–111; BP diastolic 67–83; PULSE 70–79; RESP 12–16; TEMP 36.3–36.8; O2SAT 95–96; BMI 31.6
[2025-06-10] MEDS: Lactated Ringers 1,000 ML 15 ML IV (08:03)
--- NOTE | 2025-06-10 08:13 | PCM.PRE.AN2 ---
ASA Classification* ASA Classification ASA Classification: 2 Assessment & Plan Anesthesia* Anesthesia Assessment Anesthesia Assessment: Discussed sedation and/or anesthesia options, risks, benefits, and alternatives with patient/parents/legal guardian/POA. Questions invited. The patient/parents/legal guardian/POA seems to understand and agrees to proceed with anesthesia plan. Reviewed the physical assessment, medical history, allergy history and patient home medications list prior to surgery/procedure/anesthetic and documented any changes. Performed airway and anesthesia risk assessments. Anesthesia Type Anesthesia Type: MAC History Source History Obtained from:: Patient and Chart Anesthesia Focused Assessment* Temperature: 98.3 F Pulse Rate: 79 Blood Pressure: 111/83 Respiratory Rate: 16 Pulse Ox: 96 Oxygen Delivery Method: Room Air Airway Assessment Mouth opens: >3 cm Mallampati Score: II Teeth Condition: Intact Neck Range of motion (ROM): Full ROM Labs Anesthesia Preop lab: CBC WBC 13.9 K/mm3 (4.4-11.0) H 08/04/22 05:22 08/04/22 RBC 3.93 M/mm3 (4.2-5.4) L 08/04/22 05:22 08/04/22 Hgb 11.5 g/dL (12.0-15.0) L 08/04/22 05:22 08/04/22 Hct 34.3 % (37-47) L 08/04/22 05:22 08/04/22 Plt Count 188 K/mm3 (150-450) 08/04/22 05:22 08/04/22 CHEMISTRY Potassium 3.4 mmol/L (3.5-5.1) L 08/04/22 05:22 08/04/22 Sodium 140 mmol/L (136-145) 08/04/22 05:22 08/04/22 Magnesium 2.3 mg/dL (1.8-2.4) 05/31/14 06:25 05/31/14 BUN 10 mg/dL (7-18) 08/04/22 05:22 08/04/22 Creatinine 0.75 mg/dL (0.55-1.02) 08/04/22 05:22 08/04/22 Glucose 121 mg/dL (74-106) H 08/04/22 05:22 08/04/22 POC Glucose 106 mg/dL (74-106) 08/03/22 09:03 08/03/22 TSH 0.76 uIU/mL (0.358-3.74) 05/31/14 06:25 05/31/14 COAG PT 12.3 SECONDS (11.7-14.9) 07/17/22 10:45 07/17/22 Pre-Assessment Diagnosis/Proposed Procedure Planned Operative Procedure(s): EGD Anesthesia History 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 When Was Last Pacemaker Check QUESTION #4 FULL TEXT: You/Your Family Experience fever (hyperthermia) with Anesthesia Last Oral Intake Last Oral intake: Last Oral Intake NPO since 06:00 06/10/25 07:59 Meds taken in AM with sips of Yes 06/10/25 07:59 water? Meds patient instructed to take am of surgery PONV PONV - soliciting freight agent: PONV - soliciting freight agent Female Yes 06/08/25 15:34 HX of Motion Sickness No 06/08/25 15:34 HX of N/V After Surgery No 06/08/25 15:34 Non-Smoker Yes 06/08/25 15:34 Duration of Surgery greater No 06/08/25 15:34 than 60 minutes Number of Risk Factors 2 06/08/25 15:34 PONV Score Moderate Risk 06/08/25 15:34 Height & Weight Height & Weight: Anesthesia: Height & Weight Height 5 ft 1 in 06/10/25 07:59 Weight: 76 kg 06/10/25 07:59 Body Mass Index (BMI) 31.6 06/10/25 07:59 Respiratory Assessment Respiratory Assessment - soliciting freight agent: Respiratory Tract Infection Hx - soliciting freight agent Hx Respiratory Tract Infection No 06/08/25 15:34 STOP Sleep Apnea STOP Sleep Apnea - soliciting freight agent: STOP Sleep Apnea - soliciting freight agent Hx Hypertension Yes: CONTROLLED WITH MED 06/08/25 15:34 Hx Sleep Apnea No 06/08/25 15:34 CPAP No 06/08/25 15:34 BIPAP Do you snore loudly (louder No 06/08/25 15:34 than talking or can be heard Do you often feel tired/ No 06/08/25 15:34 fatigued/ sleepy during daytime? Has anyone observed you stop No 06/08/25 15:34 breathing during sleep? STOP Results Negative 06/08/25 15:34 QUESTION #5 FULL TEXT : Do you snore loudly (louder than talking or can be heard through closed doors)? 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 Specify any problems Hx of Preganancy in last 3 No 06/08/25 15:34 Months Nurse Filling Out Transfusion VCHRISTIN 06/08/25 15:34 & Questions: Date: 06/08/25 06/08/25 15:34 Time: 15:35 06/08/25 15:34 Patient unable to answer at this time (ie. confused, unrespo /Reproduction History /Reproductive History - soliciting freight agent: /Reproductive Hx- soliciting freight agent Hx Now No 06/08/25 15:34 Gestational Age (in weeks): EDC: Hx Hx Para Hx Section SAB No 06/08/25 15:34 Active Medications Active Medications: Current Medications Generic Name Dose Route Start Last Admin Trade Name Freq PRN Reason Stop Dose Admin Lactated Ringer's 1,000 mls @ 15 mls/hr 06/10/25 08:00 06/10/25 08:03 IV 15 mls/hr .Q48H PERCY Administration PFSH Medical History Post-menopausal History of hiatal hernia History of echocardiogram Vaginal vault prolapse Rectocele Cystocele Easy bruising Dietary restriction Incomplete uterovaginal prolapse Left renal stone Wears glasses Alcohol use Diabetes Arthritis High cholesterol Restless legs Gastric reflux Non-smoker Shortness of breath on exertion History of pain when walking History of edema History of stress test Hypertension Home Medications ?Medication ?Instructions ?Recorded ?Last Taken ?Type aspirin 81 mg tablet,delayed 81 mg PO QDAY 12/04/24 06/05/25 History release (Adult Aspirin Regimen) cholecalciferol (vitamin D3) 25 25 mcg PO QDAY 12/04/24 Unknown History mcg (1,000 unit) capsule loratidine 10 mg PO PRN 12/04/24 Unknown History amlodipine 5 mg tablet 5 mg PO DAILY BP #90 tabs 05/06/25 06/10/25 07:00 Rx hydrochlorothiazide 25 mg tablet 25 mg PO DAILY BP #90 tabs 05/06/25 Unknown Rx rosuvastatin 10 mg tablet (Crestor) 10 mg PO QHS HLD #90 tabs 05/06/25 Unknown Rx omeprazole 40 mg capsule,delayed 40 mg PO QDAY #90 caps 05/20/25 Unknown Rx release Allergy/AdvReac Type Severity Reaction Status Date / Time Sulfa (Sulfonamide Allergy Intermediate dizziness Verified 06/10/25 08:00 Antibiotics) Family History Father Arthritis Heart disease Hypertension High cholesterol Kidney disease CVA (cerebral vascular accident) Mother Arthritis Heart disease Osteoporosis CVA (cerebral vascular accident) Surgical History Hx of tonsillectomy History of lithotripsy Hx of dilation of urethra Hx of hysterectomy Hx of foot surgery Hx of foot surgery Social History adopted: No household members: spouse current occupational status: retired 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
--- NOTE | 2025-06-10 08:29 | PCM.HP.BLA ---
History and Physical Date of Admission: 06/10/25 Date of Service: 05/20/25 MR#: [id number] Acct: [id number] Name: CANDY BELLE Rep #: [id number] : 1955 Provider: Dr. Ryann Harp MD Age/Sex: 70/F Location: [facility] Status: Signed Intake Vital Signs 05/06/2511:18 05/20/2513:03 Height 5 ft 1 in 5 ft 1 in Weight: 169 lb 169 lb BMI 31.9 31.9 BP 146/82 H 121/76 H Blood Pressure Location Lt brachial Rt brachial Position Sitting Sitting Respiration 18 17 Pulse 87 79 Pulse Source Monitor Monitor Temp 97.8 F Temp Source Temporal Pulse Oximetry (%) 98 97 Oxygen Delivery Method room air room air Intake Visit Reasons: Gastroesophageal reflux disease (GERD) Chief Complaint: gerd Is patient in pain?: No Allergies Sulfa (Sulfonamide Antibiotics) Allergy (Intermediate, Verified 05/20/25 13:05) dizziness Medications ?Medication ?Instructions ?Recorded ?Confirmed ?Type aspirin 81 mg tablet,delayed 81 mg PO QDAY 12/04/24 05/20/25 History release (Adult Aspirin Regimen) cholecalciferol (vitamin D3) 25 25 mcg PO QDAY 12/04/24 05/20/25 History mcg (1,000 unit) capsule loratidine 10 mg PO 12/04/24 05/20/25 History amlodipine 5 mg tablet 5 mg PO DAILY BP #90 tabs 05/06/25 05/20/25 Rx hydrochlorothiazide 25 mg tablet 25 mg PO DAILY BP #90 tabs 05/06/25 05/20/25 Rx rosuvastatin 10 mg tablet (Crestor) 10 mg PO QHS HLD #90 tabs 05/06/25 05/20/25 Rx omeprazole 40 mg capsule,delayed 40 mg PO QDAY #30 caps 05/20/25 05/20/25 Rx release omeprazole 40 mg capsule,delayed 40 mg PO QDAY #90 caps 05/20/25 05/20/25 Rx release Have you fallen in the past year?: No PFSH Medical History Vaginal vault prolapse Rectocele Cystocele Easy bruising Dietary restriction Incomplete uterovaginal prolapse Left renal stone Wears glasses Alcohol use Diabetes Arthritis High cholesterol Restless legs Gastric reflux Non-smoker Shortness of breath on exertion History of pain when walking History of edema History of stress test Hypertension Surgical History Hx of tonsillectomy History of lithotripsy Hx of dilation of urethra Hx of hysterectomy Hx of foot surgery Hx of foot surgery Family History Father Arthritis Heart disease Hypertension High cholesterol Kidney disease CVA (cerebral vascular accident)Mother Arthritis Heart disease Osteoporosis CVA (cerebral vascular accident) Social History adopted: No household members: spouse current occupational status: retired current occupation: [employer] Smoking Status: Never smoker alcohol intake: current alcohol intake frequency: holidays/special occasions only substance use type: does not use what type of physical activity do you participate in: none seatbelt use: always do you feel safe at home: Yes HPI HPI HPI: 70-year-old female presents for an EGD. Patient states she has had reflux for quite a while. Was previously on omeprazole but was changed to famotidine daily and recently has been changed to twice a day but has not really started taking it twice a day. Patient states she has more symptoms with the famotidine that she did the omeprazole which she states she occasionally had symptoms with. Patient states that her sisters do have hiatal hernias unsure if she has one or not. Patient states she had a colonoscopy 2 years ago. Patient is on aspirin 81 mg daily. ROS General General: Yes weight change; No appetite, fatigue, colon cancer or breast cancer HEENT HEENT: No difficulty swallowing, eye injury, eye surgery, swollen glands or hoarseness Endo Endocrine: No thyroid disease, diabetes mellitus, thyroid cancer, Hair loss, heat intolerance or cold intolerance Skin Skin: No rash or changing moles Musc Musculoskeletal: Yes arthritis; No back problems, rheumatoid arthritis, gout or joint pain Cardio Cardiovascular: Yes high blood pressure; No murmur, pacemaker, heart disease, atrial fibrillation, heart attack, heart stent, palpitations, shortness of breath with exertion or chest pain Psych Psychiatric: No depression, anxiety or hearing voices Resp Respiratory: Yes shortness of breath, No sleep apnea, No cough, No COPD, No asthma, No emphysema and No wheezing Gastro Gastrointestinal: No abdominal pain, No nausea or vomiting, No diarrhea, No constipation, No blood in stool, Yes acid reflux, No hemorrhoids, No ulcers, No gallbladder problem and No black,tarry stools Colt Hematologic: No blood thinners, No blood disorders, No bleeding, No anemia and No blood clots Neuro Neurologic: No numbness and No tingling Exam Const General: cooperative, healthy appearing, comfortable and no acute distress [facility] Head: normocephalic and atraumatic Neck Neck: supple Resp Effort & Inspection: normal respiratory effort Cardio Rate: regular rate GI Inspection: non-distended Palpation: soft and nontender Skin General: no rashes or lesions noted Neuro General: CN's II-XI intact bilaterally Extrem General: normal to inspection Psych Mental Status: mental status grossly normal Attitude: cooperative Assessment and Plan Assessment and Plan (1) Acid reflux: Status: Acute Qualifiers: Esophagitis presence: without esophagitis Qualified Code(s): K21.9 - Gastro-esophageal reflux disease without esophagitis (2) Hiatal hernia: Status: Acute Medications: New omeprazole swallow whole; do not crush, chew, dissolve, cut, break 40 mg PO QDAY 90 caps 3RF omeprazole swallow whole; do not crush, chew, dissolve, cut, break 40 mg PO QDAY 30 caps 0RF Discontinued famotidine Discontinued Reason: Order Changed 20 mg PO BID 180 tabs 1RF Plan Discussed with patient that would recommend being on a PPI versus an H2 mariza as she has symptoms daily. Also reviewed previous CT abdomen pelvis with patient personally from 2021 patient does have a hiatal hernia seen on CT. Which makes her more prone to reflux. Patient states she is having more symptoms with that famotidine than she did previously with the omeprazole. Also discussed with patient that she can always out eat any other medication if she eats any tomato-based products, alcohol, chocolate would recommend having additional Pepcid on hand if this does occur with the omeprazole. I have discussed the above with the patient. I have offered the patient esophagogastroduodenoscopy for evaluation. I have explained the risks/benefits of the procedure and described the procedure. I have discussed the risks with the patient, including but not limited to: infection, bleeding, perforation of the GI tract requiring emergency surgery, inability to complete the procedure, injury to any internal organs, complications of anesthesia, etc. - the patient understands and agrees to proceed. I have answered all the patient's questions to the patient's satisfaction and the patient has no further questions. Ryann Harp M.D. Pager: [phone] [facility] [address] [place] [address], [address] [place] [address] Office: [phone] Coding Level of Care Code Off vis,new,level 3 Diagnoses Gastroesophageal reflux disease without esophagitis K21.9 Esophagitis presence: without esophagitis Hiatal hernia K44.9 Clinical Quality Measures Falls Risk Screening/Assistive Devices Have you fallen in the past year?: No 05/20/25 8757 <Electronically signed by Ryann Harp MD> Date Ryann Harp MD
--- NOTE | 2025-06-10 09:00 | EGD_PTH ---
PATIENT: CANDY BELLE LOC: EN U#:[id number] AGE/SX: 70/F ROOM: RE06/10/[address]: Dr. Ryann Harp MD : 1955 BED: DIS: 06/10/2025 SPEC #: [id number] RECD: 06/10/25 12:12 STATUS: ALESIA REJeanne #: [id number] FAITH: 06/10/25 09:[address]: Ryann Harp DEPT: SURGICAL PATHOLOGY RECD BY: Mark Garza ENTERED: 06/10/25 14:22 SP TYPE: EGD BIOPSY DONIS DR: Dr. Florence Montero MD Tissues: A - Gastric mucous membrane B - Gastric mucous membrane Procedures: Immunohistochemical Stains Surgery Specimen Level IV HEADER OPERATION: EGD with biopsy and polypectomy PRE-OP DIAGNOSIS: Acid reflux, hiatal hernia TISSUE SUBMITTED: A- Antrum biopsy, B- Gastric polyp and fundus MICROSCOPIC DIAGNOSIS A. Gastric antrum, biopsy: - Features of reactive gastropathy. - IHC negative for H. pylori organisms. B. Gastric polyp, fundus, biopsy: - Fundic gland polyp. MICROSCOPIC DESCRIPTION Slides are reviewed. All matched controls reacted appropriately. These tests were developed and their performance characteristics determined by [facility]. They may not have been cleared or approved by the U.S. Food and Drug Administration. The FDA has determined that such clearance or approval is not necessary. The above immunohistochemical markers are reviewed by the Pathologist. GROSS DESCRIPTION A. Received in fixative is one container labeled with the patient's name and designated Antrum biopsy. The specimen consists of one irregular fragment of light gee soft tissue that measures 0.5 cm. The specimen is totally submitted in one cassette. B. Received in fixative is one container labeled with the patient's name and designated Gastric polyp and fundus. The specimen consists of a 1.3 x 0.8 x 0.7 cm pink-red granular sessile polyp. The resection margin is inked black. The specimen is serially sectioned and entirely submitted in 1 cassette. [place] 06/10/2025 CPT:23082w4 ,[id number]
--- NOTE | 2025-06-10 10:06 | OP.PROVAT_ITS ---
06/10/2025 Florence Montero Md Re : Upper GI endoscopy procedure for Catarina Guzman Dear Winston This procedure was performed on Tuesday, June 10, 2025. My impressions and recommendations are as follows: Impressions : - Z-line variable, 30 cm from the incisors. - Normal examined duodenum. - Erythematous mucosa in the antrum. Biopsied. - A single gastric polyp. Resected and retrieved. - Medium-sized hiatal hernia. Recommendations : - Await pathology results. - Discharge patient to home. - Resume previous diet. - Continue present medications. My findings are described in the full procedure note, which is enclosed. If I can be of further assistance, please feel free to contact me at Doctor phone number(s): , Work: . Sincerely, MD Ryann Carpio MD 06/10/2025 10:05:20 AM This report has been signed electronically.
--- NOTE | 2025-06-10 10:06 | OP.EGD_ITS ---
Patient Name: Catarina Guzman Procedure Date: 06/10/2025 9:39 AM Date of : 1955 Age: 70 Procedure: Upper GI endoscopy Indications: Heartburn Providers: Ryann Harp MD Referring MD: Florence Montero Md Medicines: Monitored Anesthesia Care Patient Profile: This is a 70 year old female. Complications: No immediate complications. Procedure: Pre-Anesthesia Assessment: - Prior to the procedure, a History and Physical was performed, and patient medications and allergies were reviewed. The patient's tolerance of previous anesthesia was also reviewed. The risks and benefits of the procedure and the sedation options and risks were discussed with the patient. All questions were answered, and informed consent was obtained. Prior Anticoagulants: The patient has taken no anticoagulant or antiplatelet agents. ASA Grade Assessment: Per anesthesia. After reviewing the risks and benefits, the patient was deemed in satisfactory condition to undergo the procedure. After obtaining informed consent, the endoscope was passed under direct vision. Throughout the procedure, the patient's blood pressure, pulse, and oxygen saturations were monitored continuously. The Endoscope was introduced through the mouth, and advanced to the second part of duodenum. The upper GI endoscopy was accomplished without difficulty. The patient tolerated the procedure well. Scope In: 9:46:04 AM Scope Out: 9:58:19 AM Total Procedure Duration Time 0 hours 12 minutes 15 seconds Findings: The Z-line was variable and was found 30 cm from the incisors. The examined duodenum was normal. Striped mildly erythematous mucosa without bleeding was found in the gastric antrum. Biopsies were taken with a cold forceps for histology. Biopsies were taken with a cold forceps for Helicobacter pylori cultures. A single 12 mm pedunculated polyp with no bleeding and no stigmata of recent bleeding was found in the gastric fundus. The polyp was removed with a hot snare. Resection and retrieval were complete. A medium-sized hiatal hernia was present. Impression: - Z-line variable, 30 cm from the incisors. - Normal examined duodenum. - Erythematous mucosa in the antrum. Biopsied. - A single gastric polyp. Resected and retrieved. - Medium-sized hiatal hernia. Recommendation: - Await pathology results. - Discharge patient to home. - Resume previous diet. - Continue present medications. Procedure Code(s): --- Professional --- 73025, Esophagogastroduodenoscopy, flexible, transoral; with removal of tumor(s), polyp(s), or other lesion(s) by snare technique 42977, 59, Esophagogastroduodenoscopy, flexible, transoral; with biopsy, single or multiple Diagnosis Code(s): --- Professional --- K22.89, Other specified disease of esophagus K31.89, Other diseases of stomach and duodenum K31.7, Polyp of stomach and duodenum K44.9, Diaphragmatic hernia without obstruction or gangrene R12, Heartburn CPT copyright 2021 [employer]. All rights reserved. The codes documented in this report are preliminary and upon teacher emotionally impaired review may be revised to meet current compliance requirements. MD Ryann Carpio MD 06/10/2025 10:05:20 AM This report has been signed electronically. Number of Addenda: 0 Note Initiated On: 06/10/2025 9:39 AM
--- NOTE | 2025-06-10 10:16 | PCM.POST.ANE ---
Anesthesia: Postop Eval I Current Vital Signs Temperature: 97.3 F Pulse Rate: 71 Blood Pressure: 110/74 Respiratory Rate: 16 Pulse Ox: 96 Oxygen Delivery Method: Room Air Assessment Airway patent: Yes Spontaneous unlabored respirations: Yes Mental status: Awake and Calm nausea: No Vomiting: No Anesthesia Complication: Yes Anesthesia Complication Comment:: O2 desat d/t profuse coughing Fluid Hydration Crystalloid volume administer (ml): 500 Total IV fluid infused: 500 Progress Note Anesthesia document: Postop Eval 1 completed: Yes
--- NOTE | 2025-06-10 16:29 | PCM.POSTANE2 ---
Anesthesia Postop Eval I Sum Postop Eval Completion status Anesthesia document: Postop Eval 1 completed: Yes Anesthesia Postop Eval I Summary Anesthesia Postop Eval I Summary: Anesthesia Postop Eval I: Assessment Summary Airway patent Yes 06/10/25 10:17 [email or web address] Spontaneous unlabored Yes 06/10/25 10:17 [email or web address] respirations Mental status Awake,Calm 06/10/25 10:17 [email or web address] nausea No 06/10/25 10:17 [email or web address] Vomiting No 06/10/25 10:17 [email or web address] Anesthesia Postop Eval I: Fluid Summary Crystalloid volume administer 500 06/10/25 10:17 [email or web address] (ml) Colloids volume administered ( ml) Blood Product volume administered (ml) Total IV fluid infused 500 06/10/25 10:17 [email or web address] Anesthesia Postop Eval I: Summary Notes Anesthesia Complication Yes 06/10/25 10:17 [email or web address] Anesthesia Complication O2 desat d/t 06/10/25 10:17 [email or web address] Comment: profuse coughing Post-operative progress note Anesthesia: Postop Eval II Evaluation Mental status: Awake Pain Level: 0 nausea: No Vomiting: No
== END 2025-06-10 11:12 | disposition home or self-care (01) ==
LOC: EN 07:44 → AC 07:46
PROVIDERS: PCP Internal Medicine; Referring Provider Internal Medicine; Visit Provider Surgery
PROC: 0DJ08ZZ Inspection of Upper Intestinal Tract, Via Natural or Artificial Opening Endoscopic (ICD-10-PCS; CPT 43235; principal; 2025-06-10 08:55)
DX: K21.9 Gastro-esophageal reflux disease without esophagitis (principal); I10 Essential (primary) hypertension; K31.7 Polyp of stomach and duodenum; K44.9 Diaphragmatic hernia without obstruction or gangrene; E78.00 Pure hypercholesterolemia, unspecified; Z79.82 Long term (current) use of aspirin; Z79.899 Other long term (current) drug therapy
CPT/HCPCS: 43251; 43239; 88305; 88342; J2405

== ENCOUNTER → 2025-08-03 | Outpatient (CLI) | payer MEDICARE, SELFPAY ==
[2025-08-03 12:22] LABS: Hematocrit 40.4 % (37-47); Hemoglobin 13.5 g/dL (12.0-15.0); Immature Granulocytes Count 0.020 X10^3/uL (0.0-0.0); Mean Corp Hgb Conc 33.4 g/dL (32-36); Mean Corpuscular Volume 88.4 fL (81-99); Mean Platelet Vol. 11.4 fl (6.2-12.0); NRBC Flagged by Analyzer 0 % (0-5); Platelet Count 228 K/mm3 (150-450); RBC Distribution Width CV 12.7 % (11.6-14.6); RBC Distribution Width SD 40.7 fl (35.1-43.9); Red Blood Count 4.57 M/mm3 (4.2-5.4); White Blood Count 4.8 K/mm3 (4.4-11.0)
[2025-08-03 13:10] LABS: AST(SGOT) 28 U/L (<=31); Alanine Aminotransfer ALT/SGPT 25 U/L (<=34); Albumin, Serum 4.2 g/dL (3.4-4.8); Alkaline Phosphatase 82 U/L (35-104); Anion Gap 14 (5-15); BUN 14 mg/dL (4-19); BUN/Creat Ratio 15.0 RATIO (10-20); Calcium,Total 9.7 mg/dL (7.6-11.0); Carbon Dioxide 26.7 mmol/L (21.0-32.0); Chloride 99 mmol/L (98-108); Cholesterol 141 mg/dL (<=200); Globulin 2.8 g/dL (2.2-4.2); Glucose 116 mg/dL (70-99); Low Density Lipoprotein Calc. 58 mg/dL; Potassium 4.0 mmol/L (3.3-5.1); Triglycerides 128 mg/dL; Very Low Density Lipoprotein 26 mg/dL (5-40); cholesterol:hdl ratio screen 2.47
== END | disposition home or self-care (01) ==
LOC: BIMLAB 09:25
PROVIDERS: PCP Internal Medicine; Referring Provider Internal Medicine; Visit Provider Internal Medicine
DX: I10 Essential (primary) hypertension (principal); R73.03 Prediabetes; E78.1 Pure hyperglyceridemia
CPT/HCPCS: 36415; 80053; 80061; 83036; 85025

== ENCOUNTER → 2025-08-11 | Outpatient (CLI) | payer MEDICARE, SELFPAY ==
[2025-08-11 16:10] LABS: Vitamin B12 365 pg/mL (180-914)
[2025-08-13 15:07] LABS: ANTINUCLEAR ANTIBODIES DIRECT Negative (Negative); Anti-Chromatin <0.2 AI (0.0-0.9); Anti-Jo <0.2 AI (0.0-0.9); Anti-dsDNA Ab <1 IU/mL (0-9); SJOGREN'S Anti-SS-A test < 0.2 AI (0.0-0.9); SJOGREN'S Anti-SS-B test < 0.2 AI (0.0-0.9)
== END | disposition home or self-care (01) ==
LOC: MTLAB 12:35
PROVIDERS: PCP Internal Medicine; Referring Provider Internal Medicine; Visit Provider Internal Medicine
DX: R20.2 Paresthesia of skin (principal); R20.0 Anesthesia of skin; Z82.69 Family history of other diseases of the musculoskeletal system and connective tissue
CPT/HCPCS: 36415; 82607; 84443; 86038; 86225; 86235

== ENCOUNTER → 2025-09-22 | Outpatient (CLI) | payer MEDICARE, SELFPAY ==
--- NOTE | 2025-09-22 14:45 | NEURO ---
NCS and/or EMG Patient Report Ordering Doctor: Florence Montero DATE OF SERVICE: 09/22/25 Clinical Summary: 70 year old female patient with symptoms of right hand numbness and pain. Nerve Conduction Studies Summary: Nerve conduction studies were performed in the right upper extremity. The right median-D2 SNAP distal latency was prolonged. Needle Examination Summary: Needle examination of select muscles of the right upper extremity was normal. Impression: This is an abnormal study. 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 There is no electrodiagnostic evidence of a right ulnar mononeuropathy or cervical radiculopathy. Multi Select Codes Neurology Neurology Interp Codes: 37403-87 Musc test done w/n test comp (interp) (1) and 24444-25 Nrv cndj test 7-8 studies (interp)
== END | disposition home or self-care (01) ==
LOC: PSN 13:44
PROVIDERS: PCP Internal Medicine; Referring Provider Internal Medicine; Visit Provider Internal Medicine
DX: R20.2 Paresthesia of skin (principal); R20.0 Anesthesia of skin
CPT/HCPCS: 95886; 95910